=== PATIENT | male | born 1960 | race Hispanic/Latino ===

== ENCOUNTER 2021-05-31 09:13 | Emergency (ER) | payer SELFPAY ==
[~2021-05-31] VITALS: Ht 162.6 cm; Wt 74.8 kg
== END 2021-05-31 09:45 | disposition home or self-care (01) ==
LOC: ER 09:44
DX: L02.811 Cutaneous abscess of head [any part, except face] (principal); M27.2 Inflammatory conditions of jaws; R50.9 Fever, unspecified; I10 Essential (primary) hypertension; F17.210 Nicotine dependence, cigarettes, uncomplicated
CPT/HCPCS: 99282